=== PATIENT | male | born 1985 | race Two or more races ===

== ENCOUNTER 2018-05-21 23:58 | Emergency (ER) | payer OTHER ==
[2018-05-22] MEDS ORDERED: Tetan/Diph/Pertus SYR(Tdap)* 0.5 ML SYR(BOOSTRIX) use SYR IM ONE (00:26)
[2018-05-22] MEDS ORDERED: Cephalexin CAP* 500 MG PO ONE (01:39)
--- NOTE | 2018-05-22 01:41 | ED ---
Laceration/Wound HPI - HPI Summary HPI Summary: Patient complains of laceration to fourth digit of left hand after getting a piece between weights while lifting. Denies any other pain, injury, symptoms. The status up-to-date. - History of Current Complaint Stated Complaint: HAND LAC/INJURY Time Seen by Provider: 05/22/18 00:16 Hx Obtained From: Patient Mechanism of Injury: Sharp/Blunt Trauma Onset/Duration: Sudden Onset Aggravating: Movement Timing: Constant Onset Severity: Moderate Current Severity: Moderate Pain Intensity: 7 Pain Scale Used: 0-10 Numeric Associated Signs & Symptoms: Negative - Allergy/Home Medications Allergies/Adverse Reactions: Allergies Allergy/AdvReac Type Severity Reaction Status Date / Time No Known Allergies Allergy Verified 05/22/18 00:02 PMH/Surg Hx/FS Hx/Imm Hx Endocrine/Hematology History: Denies: Hx Anticoagulant Therapy Cardiovascular History: Denies: Hx Cardiac Arrest History: Denies: Hx Dialysis Neurological History: Denies: Hx CVA - Immunization History Date of Tetanus Vaccine: 2016 Infectious Disease History: No Infectious Disease History: Denies: Traveled Outside the [place] in Last 30 Days - Family History Known Family History: Positive: Unknown - Social History Alcohol Use: Rare Substance Use Type: Reports: None Smoking Status (MU): Never Smoked Tobacco Review of Systems Constitutional: Negative Eyes: Negative ENT: Negative Cardiovascular: Negative Respiratory: Negative Gastrointestinal: Negative Genitourinary: Negative Musculoskeletal: Negative Skin: Other Neurological: Negative Psychological: Normal All Other Systems Reviewed And Are Negative: Yes Physical Exam - Summary Physical Exam Summary: Patient able to flex and extend each individual joint of fourth digit of left hand. Laceration along dorsal surface of middle phalanx. Triage Information Reviewed: Yes Vital Signs On Initial Exam: Initial Vitals Temp Pulse Resp BP Pulse Ox 97.1 F 55 18 138/116 98 05/22/18 00:02 05/22/18 00:02 05/22/18 00:02 05/22/18 00:02 05/22/18 00:02 Vital Signs Reviewed: Yes Appearance: Positive: Well-Appearing Skin: Positive: Warm Head/Face: Positive: Normal Head/Face Inspection Eyes: Positive: Normal Neck: Positive: Supple Respiratory/Lung Sounds: Positive: Clear to Auscultation Cardiovascular: Positive: Normal Abdomen Description: Positive: Nontender Musculoskeletal: Positive: Normal Neurological: Positive: Normal Psychiatric: Positive: Normal AVPU Assessment: Alert - Magdiel Coma Scale Best Eye Response: 4 - Spontaneous Best Motor Response: 6 - Obeys Commands Best Verbal Response: 5 - Oriented Coma Scale Total: 15 Procedures - Laceration/Wound Repair 1 Location: upper extremity Description: Linear Anesthesia: Digital, 1.0% Length, Depth and Shape: 2cm x .5cm Betadine Prep?: Yes Irrigated w/ Saline (ccs): 100 Laceration/Wound Explored: clean Debridement: minimal Number of Sutures: 5 - 5.0 ethilon Layer Closure?: No Sterile Dressing Applied?: No Diagnostics - Vital Signs Vital Signs Temp Pulse Resp BP Pulse Ox 05/22/18 00:02 97.1 F 55 18 138/116 98 - Laboratory Lab Statement: Any lab studies that have been ordered have been reviewed, and results considered in the medical decision making process. Laceration Repair Course/Dx - Course Course Of Treatment: Patient complains of laceration to fourth digit of left hand after getting a piece between weights while lifting. Denies any other pain , injury, symptoms. Tetanus status up-to-date. Physical exam:Patient able to flex and extend each individual joint of fourth digit of left hand. Laceration along dorsal surface of middle phalanx. X-ray negative for acute process. Wound sutured. Rx for Keflex. - Clinical Impression Provider Diagnoses: Laceration Discharge - Sign-Out/Discharge Documenting (check all that apply): Patient Departure - Discharge Plan Condition: Stable Disposition: HOME Patient Education Materials: Care For Your Stitches (ED), Finger Laceration (ED ) Referrals: Neymar SOW,Yared Garcia [Primary Care Provider] - Additional Instructions: Take antibiotics as directed. Sutures out in 10 days. May wash with warm running water and soap. Return to the ED for any new or worsening symptoms - Billing Disposition and Condition Condition: STABLE Disposition: Home
[2018-05-22 01:55] VITALS: BP 124/67
== END 2018-05-22 01:53 | disposition home or self-care (01) ==
LOC: ED 23:58
DX: S61.412A Laceration without foreign body of left hand, initial encounter (principal); W23.0XXA Caught, crushed, jammed, or pinched between moving objects, initial encounter; Y93.9 Activity, unspecified; Y92.9 Unspecified place or not applicable
CPT/HCPCS: 12001; 90471; 99282; A9270-GY